=== PATIENT | female | born 1985 ===

== ENCOUNTER 2017-09-18 21:23 | Emergency (ER) | payer OTHER ==
--- NOTE | 2017-09-18 22:29 | ED PDOC ---
Arrival/HPI - General Chief Complaint: Upper Extremity Problem/Injury Time Seen by Provider: 09/18/17 22:10 Historian: Patient - History of Present Illness Narrative History of Present Illness (Text): 09/18/17 22:26 The patient is a 32 year old female who presents to the Emergency department status post fall that happened at 17:00. Patient reports walking down the stairs while taking out the garbage when a plastic bottle fell. Patient slipped on the bottle and fell down that stairs. Patient complains of right shoulder pain. Patient denies any weakness/numbness/tingling in the extremity, decreased range of motion, headache, dizziness, fever, chills, chest pain, shortness of breath, nausea, vomiting, back pain, neck pain, or any other complaints. Time/Duration: 4-6 hours Symptom Onset: Sudden Symptom Course: Unchanged Severity Level: Mild Context: Slipped (fell down stairs) Past Medical History - Provider Review Nursing Documentation Reviewed: Yes - Reproductive Currently : No - Psychiatric Hx Substance Use: No Family/Social History - Physician Review Nursing Documentation Reviewed: Yes Family/Social History: Unknown Family HX Smoking Status: y Hx Alcohol Use: No Hx Substance Use: No Allergies/Home Meds Allergies/Adverse Reactions: Allergies Penicillins Allergy (Verified 09/18/17 22:15) RASH Home Medications: Home Meds Medication Instructions Recorded Confirmed No Known Home Med 09/18/17 09/18/17 Review of Systems - Physician Review All systems were reviewed & negative as marked: Yes - Review of Systems Constitutional: Normal Eyes: Normal ENT: Normal Respiratory: Normal. absent: Cough Cardiovascular: Normal. absent: Chest Pain Gastrointestinal: Normal. absent: Abdominal Pain, Diarrhea, Nausea, Vomiting Genitourinary Female: Normal. absent: Dysuria Musculoskeletal: Arthralgias (right shoulder pain) Skin: Normal Neurological: Normal. absent: Headache, Dizziness Endocrine: Normal Hemo/Lymphatic: Normal Psychiatric: Normal Physical Exam Vital Signs Reviewed: Yes Vital Signs Temp Pulse Resp BP Pulse Ox 09/18/17 23:45 98.7 F 72 18 140/82 99 09/18/17 21:28 99.2 F 73 17 148/87 100 Temperature: Afebrile Blood Pressure: Normal Pulse: Regular Respiratory Rate: Normal Appearance: Positive for: Well-Appearing, Non-Toxic, Comfortable Pain Distress: None Mental Status: Positive for: Alert and Oriented X 3 - Systems Exam Head: Present: Atraumatic, Normocephalic Pupils: Present: PERRL Extroacular Muscles: Present: EOMI Conjunctiva: Present: Normal Mouth: Present: Moist Mucous Membranes Neck: Present: Normal Range of Motion Respiratory/Chest: Present: Clear to Auscultation, Good Air Exchange. No: Respiratory Distress, Accessory Muscle Use Cardiovascular: Present: Regular Rate and Rhythm, Normal S1, S2. No: Murmurs Back: Present: Normal Inspection. No: CVA Tenderness, Midline Tenderness, Paraspinal Tenderness Upper Extremity: Present: Normal Inspection, Normal ROM, NORMAL PULSES, Neurovascularly Intact, Capillary Refill < 2s. No: Cyanosis, Edema, Tenderness , Swelling, Erythema, Temperature Abnormalties, Deformity Lower Extremity: Present: Normal Inspection. No: Edema Neurological: Present: GCS=15, CN II-XII Intact, Speech Normal Skin: Present: Warm, Dry, Normal Color. No: Rashes Psychiatric: Present: Alert, Oriented x 3, Normal Insight, Normal Concentration Medical Decision Making ED Course and Treatment: 09/18/17 22:26 Impression: 32 year old female presents to the Emergency department complaining of right shoulder pain status post a fall. Differential Diagnosis included but are not limited to: fracture vs contusion vs sprain vs dislocation Plan: -- Motrin -- Right Clavicle x-ray -- Right Shoulder x-ray -- Reassess and disposition Progress Notes: 09/18/17 23:35 Reviewed radiology, x-ray right clavicle negative for acute fracture/processes. X-ray right shoulder negative for acute fracture/processes. 09/18/17 23:58 On re-evaluation, patient feels better and is in no acute distress. Patient is stable for discharge. Patient was instructed to follow up with physician or return if symptoms worsen or new concerning symptoms arise. - RAD Interpretation Radiology Orders: 09/18/17 22:33 SHOULDER RIGHT [RAD] Stat 09/18/17 22:34 CLAVICLE RIGHT [RAD] Stat Informatics Specialist: ED Physician - Medication Orders Current Medication Orders: Discontinued Medications Ibuprofen (Motrin Tab) 400 mg PO ONCE STA Stop: 09/18/17 22:36 Last Admin: 09/18/17 22:44 Dose: 400 mg MAR Pain/Vitals Document 09/18/17 22:44 AB (Rec: 09/18/17 22:47 AB [id number]) Pain Reassessment Is This A Pain ReAssessment? Yes Sleep Is patient sleeping during reassessment? No Presence of Pain Presence of Pain Yes Pain Scale Used Pain Scale Used Numeric Location Left, Right or Bilateral Right Upper or Lower Upper Pain Location Body Site Neck Description Constant Intensity 4 Scale Used Numeric Radiation Location none Pain Behavior Crying Aggravating Factors ADL's Alleviating Factors Medication - Scribe Statement The provider has reviewed the documentation as recorded by the Scribe Ras Prabhakar All medical record entries made by the Scribe were at my direction and personally dictated by me. I have reviewed the chart and agree that the record accurately reflects my personal performance of the history, physical exam, medical decision making, and the department course for this patient. I have also personally directed, reviewed, and agree with the discharge instructions and disposition. Disposition/Present on Arrival - Present on Arrival History of DVT/PE: No History of Uncontrolled Diabetes: No Urinary Catheter: No History of Decub. Ulcer: No History Surgical Site Infection Following: None - Disposition Diagnosis: Right shoulder strain Disposition: HOME/ ROUTINE Condition: GOOD Discharge Instructions (ExitCare): Shoulder Sprain (ED) Additional Instructions: use sling as needed advil for pain Referrals: Torey Chamberlain JD, MD [Primary Care Provider] - Follow up with primary Forms: [employer] (Sami), WORK NOTE
[2017-09-18 23:59] VITALS: BP 140/82; PULSE 72; RESP 18; TEMP 98.7; O2SAT 99
--- NOTE | 2017-09-19 08:53 | RAD ---
PROCEDURE: Radiographs of the Right Shoulder HISTORY: FALL COMPARISON: No prior. FINDINGS: BONES: Bone alignment and mineralization are normal. There is no acute displaced fracture or bone destruction. JOINTS: Normal. Glenohumeral and acromioclavicular joints preserved. No osteoarthritis. SOFT TISSUES: Normal. OTHER FINDINGS: None. IMPRESSION: No acute fracture or dislocation in the osseous structures comprising the shoulder joint.
--- NOTE | 2017-09-19 08:53 | RAD ---
PROCEDURE: Radiographs of the right clavicle. HISTORY: fall COMPARISON: None. FINDINGS: RIGHT CLAVICLE: There is an old deformity in the midshaft of the clavicle with superior angulation. No acute displaced fracture or dislocation. JOINTS: Right acromioclavicular and glenohumeral joints are grossly unremarkable. SOFT TISSUES: Grossly unremarkable. OTHER FINDINGS: None. IMPRESSION: Old fracture deformity in the midshaft of the clavicle with superior angulation. No acute fracture or dislocation.
== END 2017-09-18 23:59 | disposition home or self-care (01) ==
LOC: ED 21:23
DX: S46.911A Strain of unspecified muscle, fascia and tendon at shoulder and upper arm level, right arm, initial encounter (principal); W10.9XXA Fall (on) (from) unspecified stairs and steps, initial encounter; Z88.0 Allergy status to penicillin